=== PATIENT | female | born 1960 | race Caucasian/White ===

== ENCOUNTER 2017-04-15 16:57 | Inpatient (IN) | payer MEDICAID, MEDICARE ==
[~2017-04-15] VITALS: Ht 165.1 cm; Wt 77.7 kg
[2017-04-15 17:02] VITALS: BP 138/82; PULSE 63; RESP 20; O2SAT 96
--- NOTE | 2017-04-15 18:09 | ED.REPORT ---
HPI-Psychiatric Illness Date of Service Apr 15, 2017 ED Provider: Lew Lane MD A 56 year old female with a history of depression, bipolar disorder and PTSD presents to the ED with suicidal ideation with a plan that began this afternoon. Her plan is reportedly to get a 12 gauge, tie a rope around her foot and shoot herself. The patient does not own a gun but has access to firearms. The patient was sent to the ED by her PCP after expressing suicidal thoughts. Upon initial examination, the patient expresses active suicidal ideation. She currently sees Lou Boswell at [facility] for counseling. Patient reports several similar episodes of SI over the past few years, often associated with loss and reports a previous attempt when she was an adolescent. She is willing to be a voluntary admit and agrees to meet with [facility] [facility]. She reports a previous episode of SI after her and she planned to "jump onto the freeway and get hit by a car". The patient lost her son 1 year ago and has become increasingly depressed because her son's birthday was on 04[birth year]. Nursing Notes Stated Complaint: SUICIDAL IDEATION Chief Complaint: Psychiatric Complaint Nursing Notes Reviewed: Yes Allergies: Coded Allergies: tetracycline (Verified Allergy, Severe, worse headache, 04/15/17) amoxicillin (Verified Allergy, Intermediate, headache, vomiting, 04/15/17) Penicillins (Verified Allergy, Unknown, 05/07/14) General Time Seen by MD: 18:08 Chief Complaint Suicidal ideation Hx Obtained From: Patient Arrived By: Walk-in Onset Occurred: 1 - 4 hours ago Symptom Duration: Since onset Progression Since Onset: Constant Associated with: Reports: Depression Pertinent Negative: Pt denies other symptoms Recent Healthcare: No recent doctor visit, No recent hospitalization Risk-Psychiatric Illness Suicide Risk Stratification Suicide Risk Factors - Adult: : Access to firearms: Previous attemptNo: Prior psych admission RF Statements: Risk factors reviewed Past Medical History Past Medical History Depression Bipolar disorder PTSD Past Surgical History None reported. Smoking History Unknown if Ever Smoker Social History Other Social History: Good social support, Local resident Ambulatory Status Independent Review of Systems Psychiatric: Reports: Anxiety, Depression, Stress (Many losses), Suicidal ideation Complete sys rev & neg: except as marked. Physical Exam Initial Vital Signs Vital Signs (First) Date Time Temp Pulse Resp B/P Pulse Ox O2 Delivery O2 Flow Rate FiO2 04/15/17 17:02 63 20 138/82 96 Room Air Initial VS: Reviewed Head / Eyes: Atraumatic, Normocephalic, PERRL Neck: Supple, Non-tender, Full range of motion Extremities: Vascular intact, Neuro intact, No swelling, No tenderness Skin: Warm, Dry, No cyanosis General/Constitutional: Awake, Alert Behavior: Positive: Tearful Neurologic: Oriented X3, Speech NL, No motor deficits, No sensory deficits, CN II - XII intact, Reflexes equal bilat Psychiatric: Not homicidal Abnormal Mood/Affect: Positive: Anxious, Depressed Abnormal Thinking / Perception: Positive: Suicidal, with plan Respiratory / Chest: Atraumatic, Breath sounds NL, Breath sounds = bilat, No respiratory distress Cardiovascular: Heart rate NL, Regular rhythm, Heart sounds NL Abdomen: Atraumatic, Soft, Non-tender Interpretation & Diagnostics Lab Results Interpretation Result Diagram: 04/15/17181404/15/171814 Test 04/15/17 18:15 White Blood Count 8.2th/mm3 (3.8-10.1) Red Blood Count 4.09mil/mm3 (3.90-5.20) Hemoglobin 12.8g/dL (12.0-15.6) Hematocrit 38.4% (35.0-46.0) Mean Corpuscular Volume 93.9fL (81-100) Mean Corpuscular Hemoglobin 31.3pg (27.0-35.0) Mean Corpuscular Hemoglobin Concent 33.3% (32.0-37.0) Red Cell Distribution Width 12.3% (12.3-15.4) Platelet Count 231bil/L (150-400) Neutrophils (%) (Auto) 58.1% (40-74) Lymphocytes (%) (Auto) 27.7% (14-46) Monocytes (%) (Auto) 6.4% (4-12) Eosinophils (%) (Auto) 6.3% (0-5) Basophils (%) (Auto) 1.1% (0-3) Sodium Level 142mEq/L (134-144) Potassium Level 3.7mEq/L (3.5-5.2) Chloride Level 106mEq/L (97-108) Carbon Dioxide Level 21mmol/L (18-29) Blood Urea Nitrogen 9mg/dL (6-24) Creatinine 0.70mg/dL (0.57-1.00) Estimat Glomerular Filtration Rate 123mL/min (>59) Glucose Level 93mg/dL (60-99) Calcium Level 9.2mg/dL (8.5-10.1) Total Bilirubin 0.3mg/dL (0.0-1.2) Aspartate Amino Transf (AST/SGOT) 20U/L (0-50) Alanine Aminotransferase (ALT/SGPT) 15U/L (0-32) Alkaline Phosphatase 88U/L (25-150) Total Protein 7.4g/dL (6.4-8.4) Albumin 4.6g/dL (3.4-5.0) Thyroid Stimulating Hormone (TSH) 1.710uIU/mL (0.450-4.500) Hold Michaels Top Tube Received (Received) Re-Eval/Medical Decision Med Decision/Clinical Course 56-year-old female history of depression bipolar presenting with suicidal ideation with plan to kill herself with a gun. Patient was cleared medically. She was evaluated by social science teacher and we both agreed that she needed to be admitted to the psychiatric mckeon. Patient was voluntary. Re-Evaluation/Progress : Time of Eval: 19:08 Re-Evaluation/Progress Note: Patient is a voluntary admit. All questions about the intended treatment plan are addressed. Consultation : Consulted With: Psychiatry Call Returned at: 20:03 Steel Pan Form Placing Supervisor: Will see patient, Agrees with eval, Agrees with plan, Accepts admit Note: FAN BLADE TRUER discussed patient case with psych. Psychiatry agrees to admit the patient. Counseled Regarding: Diagnosis, Lab results, Need for admission Discharge & Departure Impression: Primary Impression: Suicidal ideation Additional Impression: Acute situational disturbance Disposition: ADMITTED TO HOSPITAL Discharge Condition All VS Reviewed: Yes Condition: Stable Referrals: Roverto Conte MD (PCP) Scribe Attestation Portions of this note were transcribed by May Gold. I, Dr. Lane personally performed the history, physical exam and medical decision-making; I reviewed and confirmed the accuracy of the information in the transcribed note. copies to: Roverto Conte MD, Ben M MD Apr 15, 2017 18:09 MAY GOLD Apr 15, 2017 19:04
[2017-04-15 18:31] LABS: BASOPHILS % (AUTO) 1.1 % (0-3); EOSINOPHILS % (AUTO) 6.3 % (0-5); MONOCYTES % (AUTO) 6.4 % (4-12); Mean Corpuscular Hemoglobin 31.3 pg (27.0-35.0); Mean Corpuscular Volume 93.9 fL (81-100); NEUTROPHILS % (AUTO) 58.1 % (40-74); Platelet Count 231 bil/L (150-400)
[2017-04-15] MEDS ORDERED: LORazepam 0.5 mg Tablet PO ONE (19:10)
[2017-04-15 20:25] VITALS: BP 103/42; PULSE 65; RESP 16; O2SAT 99
[2017-04-15 20:55] VITALS: BP 103/42; PULSE 65; RESP 16; O2SAT 99
--- NOTE | 2017-04-15 21:15 | NUR ---
Nurses Admission Note 56 year old voluntary female admitted with increasing depression and suicidal ideation with plan to use a shotgun to kill herself. Patient was referred to ER by her PCP.Patient is enrolled in [facility] and follows with Fatemeh Banks. Patient has had many losses over the past few years to include her ,son,grandchildren to [employer], her father and most recently her job. Patient presents cooperative with a sad affect,depressed mood crying. Patient contracts for safety.She denied medical problems. Patient reported being clean and sober X 1 year. Patient will be maintained on q 15min. checks for safety and support.
[2017-04-15] MEDS ORDERED: Magnesium Hydroxide 10 mL Oral Concentration PO PRN (22:05)
[2017-04-15] MEDS ORDERED: Benzocaine-Menthol Lozenge 2/Pkg PO PRN (22:05)
[2017-04-15] MEDS ORDERED: Alum-Mag Hydrox-Simeth 30 mL Suspension PO PRN (22:05)
[2017-04-15] MEDS: LORazepam 1 mg Tablet PO PRN (22:29)
[2017-04-16] MEDS ORDERED: LAMO150T2 PO (00:47)
[2017-04-16] MEDS ORDERED: TRAZ-115 PO (00:52)
--- NOTE | 2017-04-16 01:09 | NUR ---
Observations 1900 to 0700 Pt was admitted to unit this evening. Pt was oriented to the unit and completed admitting paperwork. Pt ate a snack. Pt is pleasant and cooperative but has a sad affect. Pt maintained behavioral control and showed no signs of abnormal behavior. Pt appeared asleep at 2300 and has remained asleep. Pt respirations were observed when asleep. Staff completed 15 min close observations as ordered.
[2017-04-16] MEDS ORDERED: BUPR300T51 PO (01:10)
[2017-04-16] MEDS: LORazepam 1 mg Tablet PO PRN (10:49)
--- NOTE | 2017-04-16 13:48 | NUR ---
Nursing Note [id number] Mood S/O: Pt tearful most of this morning. She rates her mood at a "3" on a scale of 1-10/10 the best. Pt given Ativan 1 mg at 1055 with good effect. Encouraged pt to get out of room to see therapy dog this morning. Pt able to come out of room & seemed to do better while she visited with dog. Conversation tracking clear & organized with normal rate & rhythm. Pt is very soft-spoken. She discussed family problems & the or her son & . A: Pt is very despondent & hopeless. P: Provide supportive environment. Monitor medications & effects.
--- NOTE | 2017-04-16 14:11 | HP ---
[address] [address] HISTORY AND PHYSICAL PATIENT: GUILHERME VIVEROS : 1960 MR#: [id number] ADMIT: 04/15/2017 JOB ID: [id number] INITIAL EVALUATION: IDENTIFICATION OF PATIENT: The patient is a 56-year-old female who was admitted on a voluntary basis through the emergency department after significant referrals from her primary care physician, Dr. Conte, and her outpatient therapist, Lou at [facility]. The patient reportedly identifies increasing factors of depression, suicidal ideation with intent and plan of shooting herself with a shotgun. CHIEF COMPLAINT: "I just want to be reunited with my father and my son." This per patient report. HISTORY OF PRESENT ILLNESS: As stated above, the patient is a 56-year-old female who reportedly had been seen by her family practice physician, Dr. Conte, in [place] as well as her outpatient therapist, Jacquie, within the past several days and also contacts with a vocational rehab individual yesterday with recommendations that she come in to the emergency department. She openly identified significant factors of increasing depression, and identified stressors including the loss of her father in November of 2016 and also significant concern of her son being missing. The patient reportedly identifies that she has been dealing with significant factors of depression including complaints of insomnia, difficulties with delays of concentration, feelings of hopelessness, worthlessness, helplessness, admission of significant suicidal ideation with intent and plan. The patient reportedly has a history of prior attempts of suicide and was admitted to the hospital in 1997. However, location is unknown. The patient reportedly identifies that she is currently seen through [facility], has a four year relationship with the clinic. She previously was monitored by Dr. Sesay, later by a nurse practitioner, and currently is receiving medication management through Telemedicine with a nurse practitioner, identified as Jacquie. The patient meets with her therapist, Lou, one time per week. She identifies that she has a significant long-term history of PTSD and bipolar disorder. She is currently maintained on medications including Lamictal, trazodone, Neurontin. She indicates that she has been tried on several medications through the years. She identifies a significant history of previous usage of Wellbutrin but indicates that she is not currently taking any medication. On interview the patient was quite despondent and hesitant to respond. Showed significant difficulties with intermittent eye contact. Significant down cast affect. Tearfulness. She openly identifies significant stressors as noted above. Indicates that she just wants to be reunited with her family. She identifies that she currently lives in [place] with her 25-year-old son who works at the local [employer]. She reports that she recently underwent a significant stressor after she reportedly called [employer] with concerns of two of her grandchildren sexually acting out. She previously was a Home Health aide, employed with [employer] and unfortunately has been notified that she can no longer work with that population due to [employer] involvement. She reports that the two children are back with her daughter in [place]. She admits to a significant history of trauma exposure but details were not reviewed. She admits to previous difficulties with alcohol but indicates that she has been clean and sober since 1999. She previously was using marijuana at that time as well. PAST MEDICAL HISTORY: Substantial for allergies to PENICILLIN, AMOXICILLIN, TETRACYCLINE. She denies any ongoing medical concerns other than history of fibromyalgia. The rest of her medical history was reviewed through the emergency department report. I agree with the findings. PAST PSYCHIATRIC HISTORY: Substantial with the above information. SOCIAL HISTORY: Currently the patient lives at home with her 25-year-old son. She indicates significant losses of her father and her missing son, Huey. There is some report about there was an investigation that potentially part of his body had been found on the [place] [facility] outside of [place]. She indicates that this was later corrected and she indicates that his whereabouts are still unknown. He does have a history of chemical dependency treatment through [facility]. FAMILY HISTORY: Positive for a history of chemical dependency in the son. She denies any acknowledgement of previous treatment of other family members. DEVELOPMENT HISTORY: She reportedly graduated from high school, at [employer]. 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 She indicates that she has never obtained her degree. MENTAL STATUS EXAMINATION: General appearance: The patient is quite depressed, down cast. She cries throughout the course of conversation. Her speech is of normal tone, frequency and volume. Her mood is depressed. Her affect is congruent. Her thought process shows no evidence of racing thoughts, flight of ideas, loose or disorganized thinking. Thought content: She readily admits to significant suicidal intent and plan. She denied any active hallucinations, delusions. No evidence of paranoia. She was alert, oriented to time and place. Attention and concentration intact. Insight and judgment are fair. IMPRESSIONS: AXIS I 1. Major depressive disorder, recurrent type, nonpsychotic. 2. Posttraumatic stress disorder, chronic by history. 3. Bipolar disorder, not otherwise specified, by history. AXIS II Rule out cluster B personality features. AXIS III History of fibromyalgia. AXIS IV Stressors are noted for disturbance of primary support system, ineffective coping. AXIS V Global assessment of functioning of current 30. PLANS: 1. Recommendations for initiation of Lamictal 150 mg q.h.s. 2. Continuation of trazodone 100 mg q.h.s. 3. Discontinuation of Wellbutrin for now. 4. Collaborative information to be obtained through [facility] for further details.
[2017-04-16] MEDS: lamoTRIgine 100 mg Tablet PO SCH (14:14)
[2017-04-16 16:55] VITALS: BP 118/86; PULSE 71; RESP 16
--- NOTE | 2017-04-16 18:53 | NUR ---
Observations 0700 - 1900 Pt affect and mood was depressed, isolative, guarded and withdrawn. Pt was pleasant, polite and cooperative when approached. Pt speech and eye contact was good. Pt maintained behavior throughout the shift. Pt attended meals in D.R. and ate 25% of breakfast, declined lunch and ate about 70% of dinner. Pt was offered snack. Pt was in her room most of the shift. Pt was observed every 15 minutes through the shift as ordered.
--- NOTE | 2017-04-16 20:17 | NUR ---
NURSING NOTE [id number] Mood: "I want to cry" Affect: depressed, tearful Behavior: pt. has mostly been isolating to her room this shift, in bed, crying off and on and napping. She did come out prior to dinner and sat and watched TV for a few mins. She ate 70% of her dinner, an improvement as she had skipped lunch and only ate half a pancake at breakfast. Pt. had PRN Vistaril 50 mg for anxiety. Thought processes: pt. endorses active suicidal ideation w/no plan or intent this evening. Pt. stated "I just want to be with my son and Ronaldo". Pt. frequently tearful, reports she feels like her living children would be "better off without me". Reports that her current unemployment has made her feel "worthless" and that it "was the only thing I had to take my mind off things". Pt. agrees to tell staff if she develops a plan or intent. Addendum: 04/17/17 at 0651 by VLAD BONNER RN Pt. received PRN Trazodone 100 mg @ HS. She slept 10+ hrs (still sleeping as of time of this writing).
--- NOTE | 2017-04-16 20:21 | NUR ---
Boiler Blower/Counselor: S: "My kids know that I'm mentally ill." O: Patient slept 7 hours last night per staff. Patient denies S/I and H/I. He also denies auditory and visual hallucinations. Depression is 10/10 and anxiety is 10/10. A: Patient is cooperative, hopeless, helpless, depressed, tearful, very sad, no insight, no judgment. P: Follow the care plan, coordinate with out-patient providers.
[2017-04-17] MEDS: lamoTRIgine 100 mg Tablet PO SCH ×2 (08:16→21:38)
[2017-04-17 09:23] VITALS: BP 133/94; PULSE 89; RESP 16
--- NOTE | 2017-04-17 11:39 | PCM.PNPSY ---
Subjective Date of Service Apr 17, 2017 Subjective I spent 30 minutes both reviewing treatment plan with our clinical team, interviewing the patient and providing supportive/educational psychotherapy. I spent more than 50% of the time counseling the patient. I reviewed the treatment plan with the patient and discussed options available including the potential risks, benefits and side effects. Gem reports a severe impairment in mood stability and describes a grief response that has elements of a major depression with psychosis. Staff reports that she has been active and participating well in one-to-one unit and group activities. She slept poorly and denies psychotic symptoms review. She reports poor sleep and poor appetite poor interest depressed mood and suicidal ideation. She denies medication side effects. She was able to identify her medications and what they were used to treat. Current Medications Current Medications Hydroxyzine Pamoate 50 mg Q4H PRN PO Last administered on 04/16/17 18:27; Admin Dose 50 MG; Start 04/15/17 at 22:05 Ibuprofen 600 mg ONCE ONCE PO Last administered on 04/15/17 19:54; Admin Dose 600 MG; Start 04/15/17 at 19:45; Stop 04/15/17 at 19:46; Status DC Ibuprofen 800 mg Q8H PRN PO Last administered on 04/17/17 10:29; Admin Dose 800 MG; Start 04/16/17 at 13:50 Lamotrigine 150 mg DAILY PO Last administered on 04/16/17 14:14; Admin Dose 150 MG; Start 04/16/17 at 13:50 Lorazepam 0.5 mg ONCE ONCE PO Last administered on 04/15/17 19:31; Admin Dose 0.5 MG; Start 04/15/17 at 19:10; Stop 04/15/17 at 19:11; Status DC Lorazepam 1 mg Q4H PRN PO Last administered on 04/16/17 10:49; Admin Dose 1 MG ; Start 04/15/17 at 22:05; Stop 04/16/17 at 13:40; Status DC Trazodone HCl 50-100 MG HS PRN PO Last administered on 04/15/17 22:30; Admin Dose 100 MG; Start 04/15/17 at 22:05; Stop 04/16/17 at 13:40; Status DC Trazodone HCl 50-100MG HS PO Last administered on 8/11/17at 21:07; Admin Dose 100 MG; Start 04/16/17 at 21:00 Mental Status Exam Vital Signs Vital Signs Date Time Temp Pulse Resp B/P Pulse Ox O2 Delivery O2 Flow Rate FiO2 04/17/17 09:23 36.4 89 16 133/94 Appearance: Neat/well groomed Attitude: Pleasant, Cooperative Behavior: Tearful Affect: Labile Mood: Dysthymic, Depressed, Other (grieving) Speech Production: Normal Speech Rate: Normal Speech Articulation: Normal Thought Content: Negativistic, Guilt Danger to Self/Suicidal Ideati: Active, Plan, Intent Danger to Others: None Consciousness: Alert Orientation: Person, Place, Date, Situation Memory: Grossly Intact Estimate Intellectual Function: Average Basis for IQ estimate: Awareness current events, Word use/vocabulary, Educational history, Employment history Attention/Concentration & Cogn: Grossly Intact Cognitive Testing Method: Abstract Reasoning during interview, Proverb interpretation, Serial computations Insight: Good Judgement: Poor Result Diagram: 04/15/17181404/15/171814 Mental Health Plan Gem is a 56-year-old female admitted on a voluntary basis after referrals from her primary care physician, Dr. Conte, and her outpatient therapist, Lou at [facility]. She reported increasing symptoms of depression, and identified stressors including the loss of her father in November of 2016 and also significant concern of her son being missing. The patient reportedly identifies that she has been dealing with depression including complaints of insomnia, difficulties with delays of concentration, feelings of hopelessness, worthlessness, helplessness, admission of significant suicidal ideation with intent and plan. She reported a history of prior attempts of suicide and was admitted to the hospital in 1997. She identified increasing factors of depression, and suicidal ideation with intent and plan of shooting herself with a shotgun. She lives at home with her 25-year-old son. She indicates significant losses of her father and her missing son, Huey. There is some report about there was an investigation that potentially part of his body had been found [place] [facility] outside of [place]. 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 She is currently admitted for stabilization and safety and medication evaluation. She did not want to change her medications at this time. She wants support as she goes through a grieving process. [place] AXIS I 1. Major depressive disorder, recurrent type, nonpsychotic. 2. Posttraumatic stress disorder, chronic by history. 3. Bipolar disorder, not otherwise specified, by history. AXIS II Rule out cluster B personality features. AXIS III History of fibromyalgia. AXIS IV Stressors are noted for disturbance of primary support system, ineffective coping. AXIS V Global assessment of functioning of current 30. Medications Treatments Patient is being provided with a high degree of safety through our unit structure and active adult engagement provided by our mental health professionals, mental health technicians, psychiatric nurses and myself. We are focusing on developing improved coping skills and identifying stressors that may have led to current episode. We will attempt to: * Integrate into therapeutic groups, milieu and individual therapy. * Maintain in a closely monitored and structured unit * Provide low-stimulation environment * Obtain collateral data to assist in treatment planning * Assess degree of lability of affect and impulse control * Complete safety plan * Decrease frequency of relapse and need for re-hospitalization * Denies thoughts of harm to self * Establish a consistent sleep pattern * Medication effective in stabilization of mood and/or thought process * Reduce the risk of imminent harm to self and/or others by providing a safe environment * Tolerates medication without side effects Patient will be on the following psychiatric medications: Lamictal 150 mg at bedtime Trazodone 100 mg at bedtime Patient's legal status Voluntary Anticipated number of hospital days to achieve above goals: 7 Disposition: Home Jose Hardy MD Apr 17, 2017 11:39
--- NOTE | 2017-04-17 17:34 | NUR ---
Observations 0700 to 1900 Pt did not attend recreational activities. Pt is pleasant with a flat, sad affect. This writer editor encouraged pt to partake in activities other than resting in bed. Pt politely declines. Pt did express frustrations with anothers pt behaviors. Pt maintained behavioral control and showed no signs of abnormal behavior. When asleep, respirations were observed while asleep. Breakfast: 75%. Lunch: 75%. Dinner: 75%. Staff completed 15 min close observations as ordered.
--- NOTE | 2017-04-17 18:23 | NUR ---
NURSE NOTE DAY Orientation: x3 Mood: "I've been really tearful." Endorses depression. Matteo anxiety. Affect: Tearful, at times. Thought Process/Content: Linear, linked. Endorses thoughts that she wishes could be with her son. Denies suicide plan. Denies HI. Matteo AH, VH. Behavior: In bed much of shift, crying, tearful. Affect improves with conversation/storytelling.
--- NOTE | 2017-04-18 04:16 | NUR ---
NOC PT has been out in day room for a good part of the evening. PT talked with Zuleika MCDANIEL for some time and was well engaged in conversation. When this RN spoke with her she was very tearful and reported being very anxious and was requesting ativan. PT did not have an ativan order so RN gave vistaril with good relief. Trazadone also given at HS and pt has been sleeping well so far. PT denied any SI. Endorses for safety. Eating well today. WIll continue with current plan of care and monitor for any A/R in relation to new meds.
--- NOTE | 2017-04-18 12:28 | PCM.PNPSY ---
Subjective Date of Service Apr 18, 2017 Subjective I spent 30 minutes both reviewing treatment plan with our clinical team, interviewing the patient and providing supportive/educational psychotherapy. I spent more than 50% of the time counseling the patient. I reviewed the treatment plan with the patient and discussed options available including the potential risks, benefits and side effects. Gem reports a mild improvement in mood stability and continued severe grief which has elements of a major depression. Staff reports that she has been active and participating well in one-to-one unit and group activities. She slept 8 hours and denies psychotic symptoms review. She reports that the sleep last night really helped her mood energy and appetite. She continues to have Poor interest, a depressed mood and suicidal ideation. She denies medication side effects. She was able to identify her medications and what they were used to treat Current Medications Current Medications Ibuprofen 800 mg Q8H PRN PO Last administered on 04/18/17 09:01; Admin Dose 800 MG; Start 04/16/17 at 13:50 Lamotrigine 150 mg DAILY PO Last administered on 04/16/17 14:14; Admin Dose 150 MG; Start 04/16/17 at 13:50; Stop 04/17/17 at 11:41; Status DC Lamotrigine 150 mg HS PO Last administered on 04/17/17 21:38; Admin Dose 150 MG ; Start 04/17/17 at 21:00 Trazodone HCl 50-100MG HS PO Last administered on 04/17/17 19:47; Admin Dose 100 MG; Start 04/16/17 at 21:00 Mental Status Exam Appearance: Neat/well groomed Attitude: Pleasant, Cooperative Behavior: Tearful Affect: Labile Mood: Dysthymic, Depressed, Other (grieving) Speech Production: Normal Speech Rate: Normal Speech Articulation: Normal Thought Content: Negativistic, Guilt Danger to Self/Suicidal Ideati: Active, Plan, Intent Danger to Others: None Consciousness: Alert Orientation: Person, Place, Date, Situation Memory: Grossly Intact Estimate Intellectual Function: Average Basis for IQ estimate: Awareness current events, Word use/vocabulary, Educational history, Employment history Attention/Concentration & Cogn: Grossly Intact Cognitive Testing Method: Abstract Reasoning during interview, Proverb interpretation, Serial computations Insight: Good Judgement: Poor Result Diagram: 04/15/17181404/15/171814 Mental Health Plan Gem is a 56-year-old female admitted on a voluntary basis after referrals from her primary care physician, Dr. Conte, and her outpatient therapist, Lou at [facility]. She reported increasing symptoms of depression, and identified stressors including the loss of her father in November of 2016 and also significant concern of her son being missing. The patient reportedly identifies that she has been dealing with depression including complaints of insomnia, difficulties with delays of concentration, feelings of hopelessness, worthlessness, helplessness, admission of significant suicidal ideation with intent and plan. She reported a history of prior attempts of suicide and was admitted to the hospital in 1997. She identified increasing factors of depression, and suicidal ideation with intent and plan of shooting herself with a shotgun. She lives at home with her 25-year-old son. She indicates significant losses of her father and her missing son, Huey. There is some report about there was an investigation that potentially part of his body had been found on the [place] [facility] outside of [place]. 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 She is currently admitted for stabilization and safety and medication evaluation. She did not want to change her medications at this time. She wants support as she goes through a grieving process. Today she continued to express themes of grief and loss related to her 23-year- old son whose been missing and is suspected to be . [place] AXIS I 1. Major depressive disorder, recurrent type, nonpsychotic. 2. Posttraumatic stress disorder, chronic by history. 3. Bipolar disorder, not otherwise specified, by history. AXIS II Rule out cluster B personality features. AXIS III History of fibromyalgia. AXIS IV Stressors are noted for disturbance of primary support system, ineffective coping. AXIS V Global assessment of functioning of current 35. Medications Treatments Patient is being provided with a high degree of safety through our unit structure and active adult engagement provided by our mental health professionals, mental health technicians, psychiatric nurses and myself. We are focusing on developing improved coping skills and identifying stressors that may have led to current episode. We will attempt to: * Integrate into therapeutic groups, milieu and individual therapy. * Maintain in a closely monitored and structured unit * Provide low-stimulation environment * Obtain collateral data to assist in treatment planning * Assess degree of lability of affect and impulse control * Complete safety plan * Decrease frequency of relapse and need for re-hospitalization * Denies thoughts of harm to self * Establish a consistent sleep pattern * Medication effective in stabilization of mood and/or thought process * Reduce the risk of imminent harm to self and/or others by providing a safe environment * Tolerates medication without side effects Patient will be on the following psychiatric medications: Lamictal 150 mg at bedtime Trazodone 100 mg at bedtime Patient's legal status Voluntary Anticipated number of hospital days to achieve above goals: 7 Disposition: Home Jose Hardy MD Apr 18, 2017 12:28
--- NOTE | 2017-04-18 13:14 | NUR ---
NURSING DAYS 7-7 S/O-Patient out in common room most of am, eating meals, c/o knee pain, watching TV, quiet but approachable and interacting with others appropriately. Patient states "I have not been quiet in a long time , I start something at home and do not finish it." Patient appears slightly liable when taking about herself, tearing up at one point. A- Ibuprofen given for knee pain and heating pad provided. Patient given chance to voice concerns, heating pad use only in group room for safety and encourage socialization. P-Voluntary provide stable safe environment.
[2017-04-18] MEDS: lamoTRIgine 100 mg Tablet PO SCH (20:26)
--- NOTE | 2017-04-19 04:51 | NUR ---
Nursing, NOC shift Visible on unit, sitting in the day room, watching TV, occassional interaction with select peers. Pleasant and cooperative. Participated in evening group. Clear, concise speech; familiar with her medications. PRN ibuprofen given at HS for c/o arthritic pain. Kpad in day time, disposable hot packs at NOC. PRN Ibuprofen given at HS for generalized pain. OOB x 1 during noc for drink of water, then back to sleep. Continue Q15 min safety/room checks.
--- NOTE | 2017-04-19 11:27 | PCM.PNPSY ---
Subjective Date of Service Apr 19, 2017 Subjective I spent 30 minutes both reviewing treatment plan with our clinical team, interviewing the patient and providing supportive/educational psychotherapy. I spent more than 50% of the time counseling the patient. I reviewed the treatment plan with the patient and discussed options available including the potential risks, benefits and side effects. We discussed a trial of Cymbalta and she agreed. Gem reports a mild improvement in mood stability and continued severe grief which has elements of a major depression. Staff reports that she has been active and participating well in one-to-one unit and group activities. She slept 8 hours and denies psychotic symptoms review. She reports that the sleep last night really helped her mood energy and appetite. She continues to have Poor interest, a depressed mood and suicidal ideation. She denies medication side effects. She was able to identify her medications and what they were used to treat Current Medications Current Medications Lamotrigine 150 mg HS PO Last administered on 04/18/17t 20:26; Admin Dose 150 MG ; Start 04/17/17 at 21:00 Mental Status Exam Appearance: Neat/well groomed Attitude: Pleasant, Cooperative Behavior: Tearful Affect: Labile Mood: Dysthymic, Depressed Speech Production: Normal Speech Rate: Normal Speech Articulation: Normal Thought Content: Negativistic, Guilt Danger to Self/Suicidal Ideati: Active, Plan, Intent Danger to Others: None Consciousness: Alert Orientation: Person, Place, Date, Situation Memory: Grossly Intact Estimate Intellectual Function: Average Basis for IQ estimate: Awareness current events, Word use/vocabulary, Educational history, Employment history Attention/Concentration & Cogn: Grossly Intact Cognitive Testing Method: Abstract Reasoning during interview, Proverb interpretation, Serial computations Insight: Good Judgement: Poor Result Diagram: 04/15/17181404/15/171814 Mental Health Plan Gem is a 56-year-old female admitted on a voluntary basis after referrals from her primary care physician, Dr. Conte, and her outpatient therapist, Lou at [facility]. She reported increasing symptoms of depression, and identified stressors including the loss of her father in November of 2016 and also significant concern of her son being missing. The patient reportedly identifies that she has been dealing with depression including complaints of insomnia, difficulties with delays of concentration, feelings of hopelessness, worthlessness, helplessness, admission of significant suicidal ideation with intent and plan. She reported a history of prior attempts of suicide and was admitted to the hospital in 1997. She identified increasing factors of depression, and suicidal ideation with intent and plan of shooting herself with a shotgun. She lives at home with her 25-year-old son. She indicates significant losses of her father and her missing son, Huey. There is some report about there was an investigation that potentially part of his body had been found on the [place] [facility] outside of [place]. 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 She is currently admitted for stabilization and safety and medication evaluation. She did not want to change her medications at this time. She wants support as she goes through a grieving process. Today she continued to express themes of grief and loss related to her 23-year- old son whose been missing and is suspected to be . She agreed to start a trial of Cymbalta. [place] AXIS I 1. Major depressive disorder, recurrent type, nonpsychotic. 2. Posttraumatic stress disorder, chronic by history. 3. Bipolar disorder, not otherwise specified, by history. AXIS II Rule out cluster B personality features. AXIS III History of fibromyalgia. AXIS IV Stressors are noted for disturbance of primary support system, ineffective coping. AXIS V Global assessment of functioning of current 35. Medications Treatments Current Medications Lamotrigine 150 mg HS PO Last administered on 04/18/17t 20:26; Admin Dose 150 MG ; Start 04/17/17 at 21:00 Gem is being provided with a high degree of safety through our unit structure and active adult engagement provided by our mental health professionals, mental health technicians, psychiatric nurses and myself. We are focusing on developing improved coping skills and identifying stressors that may have led to current episode. We will attempt to: * Integrate into therapeutic groups, milieu and individual therapy. * Maintain in a closely monitored and structured unit * Provide low-stimulation environment * Obtain collateral data to assist in treatment planning * Assess degree of lability of affect and impulse control * Complete safety plan * Decrease frequency of relapse and need for re-hospitalization * Denies thoughts of harm to self * Establish a consistent sleep pattern * Medication effective in stabilization of mood and/or thought process * Reduce the risk of imminent harm to self and/or others by providing a safe environment * Tolerates medication without side effects Patient will be on the following psychiatric medications: Lamictal 150 mg at bedtime Trazodone 100 mg at bedtime Cymbalta 20 mg every morning initiated 04/19/2017 Patient's legal status Voluntary Anticipated number of hospital days to achieve above goals: 7 Disposition: Home Jose Hardy MD Apr 19, 2017 11:27
[2017-04-19] MEDS: DULoxetine 20 mg DR Capsule PO SCH ×2 (11:30→11:51)
--- NOTE | 2017-04-19 13:38 | NUR ---
Obs Dayshift Pt was out of her room less today than I saw yesterday. Sad, depressed affect. Tearful, engages mostly w/ staff will at times w/ some peers. Hopeless, depressed, little to no energy. Ok ADL's, ok meals
[2017-04-19] MEDS: lamoTRIgine 100 mg Tablet PO SCH (20:43)
--- NOTE | 2017-04-20 00:27 | NUR ---
Observations 1900 to 0700 Pt attended and participated in wrap up group. Pt ate a snack. Pt is pleasant and cooperative and spent evening watching TV with peers and was mildly social with peers and staff. Pt maintained behavioral control and showed no signs of abnormal behavior. Pt appeared asleep from 2200- 0000. Pt is currently resting quietly in bed. Pt respirations were observed when asleep. Staff completed 15 min close observations as ordered.
--- NOTE | 2017-04-20 00:55 | NUR ---
Nursing Nightshift: S: "I've been sleeping well the last few nights." O: Patient made the above statement when taking her HS medications. Pleasant on approach. Social with peers. To bed after wrap up group, snacks, and popcorn. A: More animated. Occasional smile. P: CPOC. Monitor mood and behavior. Addendum: 04/20/17 at 0438 by MITCHELL TORRES RN Patient up around midnight for a short while. C/O cramping in her left leg as well as anxiety. Received Vistaril 50 mg PO at 0012. Back to sleep shortly there after and is presently asleep.
[2017-04-20] MEDS: DULoxetine 20 mg DR Capsule PO SCH (08:29)
[2017-04-20 10:22] VITALS: BP 131/91; PULSE 98
--- NOTE | 2017-04-20 15:13 | PCM.PNPSY ---
Subjective Date of Service Apr 20, 2017 Subjective I spent 30 minutes both reviewing treatment plan with our clinical team, interviewing the patient and providing supportive/educational psychotherapy. I spent more than 50% of the time counseling the patient. I reviewed the treatment plan with the patient and discussed options available including the potential risks, benefits and side effects. We discussed a trial of Cymbalta and she agreed. Gem reports continued improvement in mood stability and continued severe grief which has elements of a major depression. Staff reports that she has been active and participating well in one-to-one unit and group activities. She slept 7 hours and denies psychotic symptoms review. She reports that the sleep last night really helped her mood energy and appetite. She continues to have Poor interest, and a depressed mood . The intensity of her suicidal ideation is markedly decreased. She denies medication side effects. She declined my offer of the addition of Cymbalta. She wants to continue on trazodone and Lamictal in deal mostly with her grief through prayer and psychotherapy. We are working to safety plan should suicidal ideation recur as an outpatient. Current Medications Current Medications Duloxetine HCl 20 mg DAILY PO Last administered on 04/20/17t 08:29; Admin Dose 20 MG; Start 04/19/17 at 11:30 Mental Status Exam Vital Signs Vital Signs Date Time Temp Pulse Resp B/P Pulse Ox O2 Delivery O2 Flow Rate FiO2 04/20/17 10:22 36.1 98 131/91 Appearance: Neat/well groomed Attitude: Pleasant, Cooperative Behavior: Tearful Affect: Labile Mood: Dysthymic, Depressed, Other (grieving) Speech Production: Normal Speech Rate: Normal Speech Articulation: Normal Thought Content: Negativistic, Guilt Danger to Self/Suicidal Ideati: Passive, Plan Danger to Others: None Consciousness: Alert Orientation: Person, Place, Date, Situation Memory: Grossly Intact Estimate Intellectual Function: Average Basis for IQ estimate: Awareness current events, Word use/vocabulary, Educational history, Employment history Attention/Concentration & Cogn: Grossly Intact Cognitive Testing Method: Abstract Reasoning during interview, Proverb interpretation, Serial computations Insight: Good Judgement: Limited Result Diagram: 04/15/17181404/15/171814 Mental Health Plan Gem is a 56-year-old female admitted on a voluntary basis after referrals from her primary care physician, Dr. Conte, and her outpatient therapist, Lou at [facility]. She reported increasing symptoms of depression, and identified stressors including the loss of her father in November of 2016 and also significant concern of her son being missing. The patient reportedly identifies that she has been dealing with depression including complaints of insomnia, difficulties with delays of concentration, feelings of hopelessness, worthlessness, helplessness, admission of significant suicidal ideation with intent and plan. She reported a history of prior attempts of suicide and was admitted to the hospital in 1997. She identified increasing factors of depression, and suicidal ideation with intent and plan of shooting herself with a shotgun. She lives at home with her 25-year-old son. She indicates significant losses of her father and her missing son, Huey. There is some report about there was an investigation that potentially part of his body had been found on [place] [facility] outside of [place]. 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 She is currently admitted for stabilization and safety and medication evaluation. She did not want to change her medications at this time. She wants support as she goes through a grieving process. Today she continued to express themes of grief and loss related to her 23-year- old son whose been missing and is suspected to be . [place] AXIS I 1. Major depressive disorder, recurrent type, nonpsychotic. 2. Posttraumatic stress disorder, chronic by history. 3. Bipolar disorder, not otherwise specified, by history. AXIS II Rule out cluster B personality features. AXIS III History of fibromyalgia. AXIS IV Stressors are noted for disturbance of primary support system, ineffective coping. AXIS V Global assessment of functioning of current 40 Medications Treatments Patient is being provided with a high degree of safety through our unit structure and active adult engagement provided by our mental health professionals, mental health technicians, psychiatric nurses and myself. We are focusing on developing improved coping skills and identifying stressors that may have led to current episode. We will attempt to: * Integrate into therapeutic groups, milieu and individual therapy. * Maintain in a closely monitored and structured unit * Provide low-stimulation environment * Obtain collateral data to assist in treatment planning * Assess degree of lability of affect and impulse control * Complete safety plan * Decrease frequency of relapse and need for re-hospitalization * Denies thoughts of harm to self * Establish a consistent sleep pattern * Medication effective in stabilization of mood and/or thought process * Reduce the risk of imminent harm to self and/or others by providing a safe environment * Tolerates medication without side effects Patient will be on the following psychiatric medications: Lamictal 150 mg at bedtime Trazodone 100 mg at bedtime Patient's legal status Voluntary Anticipated number of additional hospital days to achieve above goals: 4 Disposition: Home Jose Hardy MD Apr 20, 2017 15:13
--- NOTE | 2017-04-20 17:42 | NUR ---
NURSE NOTE DAY Mood: Endorses depression. Affect: Tearful, at times. Smiling, at times. Thought Process/Content: "I just want to be with my son." Endorses SI, with plan to crash car or jump off of building. Denies HI. Denies AH, VH. Behavior: Pt up in common area all morning, interacting appropriately with peers and staff. PRNs/NURS: PRN ibuprofen for neck pain at 1035.
[2017-04-20] MEDS: lamoTRIgine 100 mg Tablet PO SCH (20:45)
--- NOTE | 2017-04-20 23:36 | NUR ---
Observations 1900 to 0700 Pt attended and participated in wrap up group. Pt ate a snack. Pt is social with peers and is pleasant and cooperative with staff. Pt has spent free time in common areas watching tv and making conversations with peers. Pts affect is bright and cheerful. Pt maintained behavioral control and showed no signs of abnormal behavior. Pt appeared asleep at 2230. Pt respirations were observed when asleep. Staff completed 15 min close observations as ordered.
--- NOTE | 2017-04-21 04:22 | NUR ---
Nursing Noc Pt behavior appropriate this shift. Zero obvious depression or sadness. Noted to be conversing in common area and watching TV throughout the evening participated in evening wrap and snack. Noted to be asleep at 2230 and has remained asleep throughout the shift. Continuing to monitor mood/behavior, emotional state and sleep quality and quantity. Q15 minute safety checks, CP
[2017-04-21] MEDS: DULoxetine 20 mg DR Capsule PO SCH (08:15)
--- NOTE | 2017-04-21 10:58 | PCM.PNPSY ---
Subjective Date of Service Apr 21, 2017 Subjective I spent 30 minutes both reviewing treatment plan with our clinical team, interviewing the patient and providing supportive/educational psychotherapy. I spent more than 50% of the time counseling the patient. I reviewed the treatment plan with the patient and discussed options available including the potential risks, benefits and side effects. Gem reports continued improvement in mood stability and continued severe grief which has elements of a major depression. Staff reports that she has been active and participating well in one-to-one unit and group activities. She slept 7 hours and denies psychotic symptoms review. She reports that the sleep last night really helped her mood energy and appetite. She continues to have Poor interest, and a depressed mood . The intensity of her suicidal ideation continues to decrease. She denies medication side effects. She continues to decline my offer of the addition of Cymbalta. She prefers to continue on trazodone and Lamictal to treat her mood and to treat her grief through prayer and psychotherapy. We are working to safety plan should suicidal ideation recur as an outpatient. Current Medications Current Medications Duloxetine HCl 20 mg DAILY PO Last administered on 04/20/17t 08:29; Admin Dose 20 MG; Start 04/19/17 at 11:30 Mental Status Exam Appearance: Neat/well groomed Attitude: Pleasant, Cooperative Behavior: No unusual behavior Affect: Labile Mood: Dysthymic, Depressed Speech Production: Normal Speech Rate: Normal Speech Articulation: Normal Thought Content: Negativistic, Guilt Danger to Self/Suicidal Ideati: Passive, Plan Danger to Others: None Consciousness: Alert Orientation: Person, Place, Date, Situation Memory: Grossly Intact Estimate Intellectual Function: Average Basis for IQ estimate: Awareness current events, Word use/vocabulary, Educational history, Employment history Attention/Concentration & Cogn: Grossly Intact Cognitive Testing Method: Abstract Reasoning during interview, Proverb interpretation, Serial computations Insight: Good Judgement: Limited Result Diagram: 04/15/17181404/15/171814 Mental Health Plan Gem is a 56-year-old female admitted on a voluntary basis after referrals from her primary care physician, Dr. Conte, and her outpatient therapist, Lou at [facility]. She reported increasing symptoms of depression, and identified stressors including the loss of her father in November of 2016 and also significant concern of her son being missing. The patient reportedly identifies that she has been dealing with depression including complaints of insomnia, difficulties with delays of concentration, feelings of hopelessness, worthlessness, helplessness, admission of significant suicidal ideation with intent and plan. She reported a history of prior attempts of suicide and was admitted to the hospital in 1997. She identified increasing factors of depression, and suicidal ideation with intent and plan of shooting herself with a shotgun. She lives at home with her 25-year-old son. She indicates significant losses of her father and her missing son, Huey. There is some report about there was an investigation that potentially part of his body had been found on the [place] [facility] outside of [place]. 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 She is currently admitted for stabilization and safety and medication evaluation. She did not want to change her medications at this time. She wants support as she goes through a grieving process. Today she continued to express themes of grief and loss related to her 23-year- old son whose been missing and is suspected to be . We worked on a safety plan for after discharge. We talked about an additional 48 hours of treatment and we will attempt to discharge Wednesday at noon. [place] AXIS I 1. Major depressive disorder, recurrent type, nonpsychotic. 2. Posttraumatic stress disorder, chronic by history. 3. Bipolar disorder, not otherwise specified, by history. AXIS II Rule out cluster B personality features. AXIS III History of fibromyalgia. AXIS IV Stressors are noted for disturbance of primary support system, ineffective coping. AXIS V Global assessment of functioning of current 40 Medications Treatments Patient is being provided with a high degree of safety through our unit structure and active adult engagement provided by our mental health professionals, mental health technicians, psychiatric nurses and myself. We are focusing on developing improved coping skills and identifying stressors that may have led to current episode. We will attempt to: * Integrate into therapeutic groups, milieu and individual therapy. * Maintain in a closely monitored and structured unit * Provide low-stimulation environment * Obtain collateral data to assist in treatment planning * Assess degree of lability of affect and impulse control * Complete safety plan * Decrease frequency of relapse and need for re-hospitalization * Denies thoughts of harm to self * Establish a consistent sleep pattern * Medication effective in stabilization of mood and/or thought process * Reduce the risk of imminent harm to self and/or others by providing a safe environment * Tolerates medication without side effects Patient will be on the following psychiatric medications: Lamictal 150 mg at bedtime Trazodone 100 mg at bedtime Patient's legal status Voluntary Anticipated number of additional hospital days to achieve above goals: 3 Disposition: Home Jose Hardy MD Apr 21, 2017 10:58
--- NOTE | 2017-04-21 13:25 | NUR ---
Prn Medication Pt c/o neck/low back pain rated 7/10. Requested and received Motrin 800mg po prn along with two warm packs. Will reassess medication efficacy.
--- NOTE | 2017-04-21 15:26 | NUR ---
[id number]. nurs. S: "He reminded me of my son ...I just want to be with him... they (other family) don't need me they have their own lives... I know where he is, he told me, he has fallen and broken his neck he was drunk I can find him I want to bring him back here. " O: Pt reporting that she does not feel rest of her family here support her goal to return to [place] and find missing son. Pt reporting that she has no money, to return and needs to work first. Pt reporting the support she has received from son with whom she lives currently. Pt reporting that she had rapport and good conversations with peer that has discharged. Pt out in DR and conversing with male peer who has discharged now and affect appears a little brighter with some brief smiling but pt continues to verbalize ambivalence re future hopes plans and SI. Pt can maintain safety on unit. Pt stating aware of plan for discharge on Wednesday. P:BLAINE
--- NOTE | 2017-04-21 16:41 | NUR ---
Building Mover/Counselor: S: "I've been depressed for many years." O: Patient reports that her S/I is decreasing slowly. She denies H/I. He also denies auditory and visual hallucinations. Depression and anxiety were not rated. A: Patient is cooperative, dysthymic, depressed, labile, negativistic, limited judgment. P: Follow the care plan, coordinate with out-patient providers.
--- NOTE | 2017-04-21 18:29 | NUR ---
[facility] Day Shift Pt maintained behavioral control throughout the shift. Pt affect appears mostly flat, brighter when engaged with staff and peers. Pt spends most of the shift watching TV in the dining room and interacting with peers. Pt is pleasant with staff and peers when engaged, but is not social. Pt declines to participate in unit activities. Pt attended all meals and ate approx 100% of all meals.
[2017-04-21 19:12] VITALS: BP 132/80; PULSE 74; RESP 18
[2017-04-21] MEDS: lamoTRIgine 100 mg Tablet PO SCH (21:04)
--- NOTE | 2017-04-22 04:46 | NUR ---
Nursing Noc. Pt out to common area watching TV and interacting with other patients. Zero obvious distress or report of discomfort. Noted to sleep throughout the night. Continuing to monitor mood/behavior and emotional state. Q15 minute safety checks throughout the night. CP
[2017-04-22] MEDS: DULoxetine 20 mg DR Capsule PO SCH ×2 (08:07→08:30)
--- NOTE | 2017-04-22 11:15 | PCM.PNPSY ---
Subjective Date of Service Apr 22, 2017 Subjective I spent 30 minutes both reviewing treatment plan with our clinical team, interviewing the patient and providing supportive/educational psychotherapy. I spent more than 50% of the time counseling the patient. I reviewed the treatment plan with the patient and discussed options available including the potential risks, benefits and side effects. Gem reports continued improvement in mood stability and continued grief which has elements of a major depression. Staff reports that she has been active and participating well in one-to-one unit and group activities. She slept well and denies psychotic symptoms review or suicidal ideation. She reports that the sleep last night really helped her mood energy and appetite. She continues to have Poor interest, and a depressed mood . She denies medication side effects. She continues to decline my offer of the addition of Cymbalta. She prefers to continue on trazodone and Lamictal to treat her mood and to treat her grief through prayer and psychotherapy. We are working to safety plan should suicidal ideation recur as an outpatient. Mental Status Exam Appearance: Neat/well groomed Attitude: Pleasant, Cooperative Behavior: No unusual behavior Affect: Flat Mood: Dysthymic Speech Production: Normal Speech Rate: Normal Speech Articulation: Normal Thought Content: Negativistic, Guilt Danger to Self/Suicidal Ideati: None, Plan Danger to Others: None Consciousness: Alert Orientation: Person, Place, Date, Situation Memory: Grossly Intact Estimate Intellectual Function: Average Basis for IQ estimate: Awareness current events, Word use/vocabulary, Educational history, Employment history Attention/Concentration & Cogn: Grossly Intact Cognitive Testing Method: Abstract Reasoning during interview, Proverb interpretation, Serial computations Insight: Good Judgement: Good Mental Health Plan Gem is a 56-year-old female admitted on a voluntary basis after referrals from her primary care physician, Dr. Conte, and her outpatient therapist, Lou at [facility]. She reported increasing symptoms of depression, and identified stressors including the loss of her father in November of 2016 and also significant concern of her son being missing. The patient reportedly identifies that she has been dealing with depression including complaints of insomnia, difficulties with delays of concentration, feelings of hopelessness, worthlessness, helplessness, admission of significant suicidal ideation with intent and plan. She reported a history of prior attempts of suicide and was admitted to the hospital in 1997. She identified increasing factors of depression, and suicidal ideation with intent and plan of shooting herself with a shotgun. She lives at home with her 25-year-old son. She indicates significant losses of her father and her missing son, Huey. There is some report about there was an investigation that potentially part of his body had been found [place] the [place] [address] [place] outside of [place]. 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 She is currently admitted for stabilization and safety and medication evaluation. She does not want to change her medications at this time. She wants support as she goes through a grieving process. Today she continued to express themes of grief and loss related to her 23-year- old son whose been missing and is suspected to be but denies suicidal ideation plan or intent. We worked on a safety plan for after discharge. We talked about an additional 24 hours of treatment and we will attempt to discharge Wednesday at noon. [place] AXIS I 1. Major depressive disorder, recurrent type, nonpsychotic. 2. Posttraumatic stress disorder, chronic by history. 3. Bipolar disorder, not otherwise specified, by history. AXIS II Rule out cluster B personality features. AXIS III History of fibromyalgia. AXIS IV Stressors are noted for disturbance of primary support system, ineffective coping. AXIS V Global assessment of functioning of current 40 Medications Treatments Patient is being provided with a high degree of safety through our unit structure and active adult engagement provided by our mental health professionals, mental health technicians, psychiatric nurses and myself. We are focusing on developing improved coping skills and identifying stressors that may have led to current episode. We will attempt to: * Integrate into therapeutic groups, milieu and individual therapy. * Maintain in a closely monitored and structured unit * Provide low-stimulation environment * Obtain collateral data to assist in treatment planning * Assess degree of lability of affect and impulse control * Complete safety plan * Decrease frequency of relapse and need for re-hospitalization * Denies thoughts of harm to self * Establish a consistent sleep pattern * Medication effective in stabilization of mood and/or thought process * Reduce the risk of imminent harm to self and/or others by providing a safe environment * Tolerates medication without side effects Patient will be on the following psychiatric medications: Lamictal 150 mg at bedtime Trazodone 100 mg at bedtime Patient's legal status Voluntary Anticipated number of additional hospital days to achieve above goals: 1 Disposition: Home Jose Hardy MD Apr 22, 2017 11:15
[2017-04-22 14:49] VITALS: BP 153/98; PULSE 54; RESP 16
--- NOTE | 2017-04-22 18:29 | NUR ---
[phone]. nurs. S/O: Pt denying having any SI currently and visiting with her older son this mian. Pt stating that she is ready for discharge tomorrow and is going to return to her residence where she lives with another son. Pt reporting that she did not like the way cymbalta made her feel, that it blocked her emotions and did not let her cry. Pt out on unit lightly pleasant with peers, not seeking interaction, but did attend grps. Pt later in mian reporting that she was not involving other children in her plans for trying to find her son/sons body and bring him home, and that they dealt with this situation in their own way. P:PUJAP
[2017-04-22] MEDS: lamoTRIgine 100 mg Tablet PO SCH (21:30)
--- NOTE | 2017-04-23 05:09 | NUR ---
nursing, nights, 11-7 s/o- has appeared to sleep after 2300 during q 15 minute assessments. a- no apparent distress. p- monitor behavior/emotional state, quality, times and amount of sleep, use and effect of medication. too
--- NOTE | 2017-04-23 10:45 | PCM.DIMED ---
Discharge Instructions Date of Service Apr 23, 2017 Dates of Hospitalization Apr 15, 2017 at 20:39 Discharge Diagnosis Discharge Diagnosis AXIS I 1. Major depressive disorder, recurrent type, nonpsychotic. 2. Posttraumatic stress disorder, chronic by history. 3. Bipolar disorder, not otherwise specified, by history. AXIS II none AXIS III History of fibromyalgia. AXIS IV Stressors are noted for disturbance of primary support system, ineffective coping. AXIS V Global assessment of functioning of current 50 Diet Discharge Diet: No restrictions Activity Discharge Activity: No restrictions Call your provider Call your provider for: Fever or Chills (I: Edges were surgeries willing to sign in voluntarily voluntarily good in the window where Don is getting get follow-up care I did not ask) Patient Instructions Follow-up plan Discharge follow-up for therapy and medication prescription through case fitter AJ Follow-up with PCP in: 2 weeks Jose Hardy MD Apr 23, 2017 10:45
[2017-04-23] MEDS ORDERED: TRAZ-115 PO (10:46)
[2017-04-23] MEDS ORDERED: LAMO150T2 PO (10:46)
--- NOTE | 2017-04-23 11:21 | DIS ---
[address] [address] DISCHARGE SUMMARY PATIENT: GUILHERME VIVEROS : 1960 MR#: [id number] ADMIT: 04/15/2017 JOB ID: [id number] DIS: 04/23/2017 IDENTIFICATION: The patient is a 51-year-old female admitted on a voluntary basis through the emergency department after reported increasing symptoms of depression. REASON FOR ADMISSION: Client had suicidal ideation with intent of shooting herself with a shotgun. SUMMARY OF PRESENT ILLNESS: The patient is a 56-year-old white female, who has been followed by her family practice physician, Dr. Conte in [place] as well as outpatient therapist, Jacquie. She has had significant increasing depression since the loss of her father in November of 2014. Her son has also been missing and suspected in [place]. As a result, she had multiple symptoms of depression including insomnia, difficulties with concentration, feeling helpless, worthless and was admitted for a suicidal ideation with intent and plan. She, at the time of admission, had been on a combination of Wellbutrin, trazodone and Lamictal. HOSPITAL COURSE: Client is admitted to our unit and is provided with a high degree of safety through the structure and active adult engagement she received here. We worked on helping her develop coping skills and coming up with a safety plan should suicidal ideation recur after discharge. She was maintained on relatively low doses of Lamictal and trazodone during her stay. She refused my recommendations for increasing medications stating she wanted to use psychotherapy and spiritual practices in order to treat her depression. She showed slow but steady improvement by 10% on a daily basis. She showed gradual but steady improvement in mood, impulse control, insight and judgment. Today she is requesting discharge and consistently denied suicidal ideation or plan. She detailed a reasonable safety plan with me. MENTAL STATUS: Neatly dressed, calm, pleasant, good eye contact. Mood dysthymic. Affect congruent, flat, restricted. Thought process: Client is able to relate a coherent history. No signs of psychosis. Thought content significant for themes of future planning. She plans to go on a mission to [place] when she can save up enough money and see if she can find her son's body. She denied suicidal ideation, plan or intent. Insight and judgment are appropriate. Impulse control highly contained yet has a difficult time handling impulses of sadness and guilt. Reality testing intact. Competence to handle current stressors is appropriate. DISCHARGE DIAGNOSIS: AXIS I 1. Major depressive disorder, recurrent type. 2. Posttraumatic stress disorder. AXIS II Deferred. AXIS III Fibromyalgia. AXIS IV Moderate. AXIS V Current global assessment of functioning equal to 45. DISCHARGE PLANS: Per family independence case manager, KEYANNA. Client has a physician in [place] and a therapist here in [facility]. DISCHARGE MEDICATIONS: 1. Lamictal 150 daily. 2. Trazodone 50 mg h.s. ACTIVITY AND DIET: Recommend client refrain from recreational drugs and alcohol while taking psychiatric medications. Recommend she participate actively in therapy. Recommend she not change medications unless under the direction of a physician. CONDITION ON DISCHARGE: Good. PROGNOSIS: Good.
--- NOTE | 2017-04-23 13:53 | NUR ---
Nursing Note Discharge Patient cooperative with discharge process. Acknowledges understanding of d/c instructions and has a copy with them upon leaving unit at 1210. Belongings accounted for and with patient. Prescriptions faxed to [facility] in [place]. Patient denies harmful thoughts and hallucinations at this time. Patient went home with her son.
--- NOTE | 2017-04-23 14:52 | NUR ---
Senior Trial Attorney/Counselor: S: "I've been depressed a long time." O: Patient slept 8 hours last night per staff. Patient denies S/I and H/I. He also denies auditory and visual hallucinations. Depression and anxiety were not rated. A: Patient is cooperative, dysthymic, a little hopeful,fair judgment. P: Follow the care plan, coordinate with out-patient providers.
== END 2017-04-23 12:10 | disposition home or self-care (01) | DRG 885 ==
LOC: SED 16:57 → MHC 20:39
PROVIDERS: ADMIT Psychiatry & Neurology Psychiatry; ATTEND Psychiatry & Neurology Psychiatry
DX: F33.9 Major depressive disorder, recurrent, unspecified (principal); R45.851 Suicidal ideations; Z63.4 Disappearance and death of family member; F43.10 Post-traumatic stress disorder, unspecified